=== PATIENT | female | born 1990 | race African-American/Black ===

== ENCOUNTER 2019-06-12 00:26 | Inpatient (IN) | payer MEDICAID ==
[~2019-06-12] VITALS: Ht 172.7 cm; Wt 122.5 kg
[2019-06-12] MEDS ORDERED: LACTATED RINGERS 1,000 ML IV SCH (01:20)
[2019-06-12] MEDS ORDERED: DEXT 5%/LR + PITOCIN 20UNITS/L 1,000 ML IV SCH ×2 (01:20→02:41)
[2019-06-12] MEDS ORDERED: LIDOCAINE HCL 1% 20ML VIAL (Pyxis) INJ INFIL SCH (01:30)
[2019-06-12] MEDS ORDERED: MISOPROSTOL 200MCG TABLET VG SCH (01:30)
[2019-06-12] MEDS ORDERED: ACETAMINOPHEN WITH CODEINE 300/30MG TABLET PO PRN (02:45)
[2019-06-12] MEDS ORDERED: IBUPROFEN 400MG TABLET PO PRN (02:45)
[2019-06-12] MEDS ORDERED: GLYCERIN/WITCH HAZEL LEAF MEDICATED PAD TOP PRN (02:45)
[2019-06-12] MEDS ORDERED: HEMORRHOIDAL SUPP PR PRN (02:45)
[2019-06-12] MEDS ORDERED: LANOLIN OINT 7GM TUBE TOP PRN (02:45)
[2019-06-12] MEDS ORDERED: DIPHENHYDRAMINE 25MG CAPSULE PO PRN (02:45)
[2019-06-12 02:58] LABS: CHLORIDE 107 mEq/L (98-107)
[2019-06-12 03:01] LABS: CLARITY URINE TURBID (CLEAR); COLOR URINE ORANGE (YELLOW); KETONES URINE 4+ (NEGATIVE); LEUKOCYTE ESTERASE URINE TRACE (NEGATIVE); NITRITE URINE NEGATIVE (NEGATIVE); OCCULT BLOOD URINE 3+ (NEGATIVE); PROTEIN URINE 2+ (NEGATIVE)
[2019-06-12 03:03] LABS: D-DIMER 4.25 mg/L FEU (<0.50); PARTIAL THROMBOPLASTIN TIME 39.2 sec (23.4-31.0); PROTHROMBIN TIME 11.1 sec (9.6-11.0)
[2019-06-12 03:12] LABS: HEMATOCRIT. 38.5 % (36.0-48.0); HEMOGLOBIN. 12.3 g/dL (12.0-16.0); MEAN CORPUSCULAR HEMOGLOBIN 26.6 pg (28.0-32.0); MEAN CORPUSCULAR VOLUME 83.1 fL (81.0-99.0); MEAN PLATELET VOLUME 11.6 fl (7.4-10.4); PLATELET 242 x1000/uL (130-400); RED BLOOD CELL COUNT 4.64 mill/uL (4.2-5.4); RED CELL DISTRIBUTION WIDTH 17.3 % (11.6-14.6)
[2019-06-12 03:13] LABS: *AMPHETAMINES SCREEN URINE NEGATIVE (NEGATIVE); *BARBITURATES SCREEN URINE NEGATIVE (NEGATIVE); *BENZODIAZEPINES SCREEN URINE NEGATIVE (NEGATIVE); *COCAINE SCREEN URINE NEGATIVE (NEGATIVE); CANNABINOID URINE SCREEN NEGATIVE (NEGATIVE); PHENCYCLIDINE URINE SCREEN NEGATIVE (NEGATIVE)
[2019-06-12 03:14] LABS: METHADONE URINE SCREEN NEGATIVE (NEGATIVE); OPIATES URINE SCREEN NEGATIVE (NEGATIVE)
[2019-06-12 03:26] LABS: HEPATITIS B SURFACE ANTIGEN NEGATIVE
[2019-06-12] MEDS: IBUPROFEN 800MG TABLET PO PRN ×2 (03:52→16:22)
[2019-06-12] MEDS ORDERED: PREN-182 PO (04:00)
[2019-06-12 05:15] VITALS: BP 123/75
[2019-06-12] MEDS ORDERED: TETANUS, DIPHTHERIA, PERTUSSIS VAC/PF 0.5ML (>7YR OLD) IM ONE (06:00)
[2019-06-12] MEDS ORDERED: INFLUENZA VIRUS VACCINE(AFLURIA) 0.5ML SYR IM ONE (06:00)
[2019-06-12 06:35] LABS: HEMATOCRIT. 30.9 % (36.0-48.0); HEMOGLOBIN. 9.9 g/dL (12.0-16.0); MEAN CORPUSCULAR HEMOGLOBIN 26.6 pg (28.0-32.0); MEAN CORPUSCULAR VOLUME 82.8 fL (81.0-99.0); MEAN PLATELET VOLUME 10.8 fl (7.4-10.4); PLATELET 228 x1000/uL (130-400); RED BLOOD CELL COUNT 3.73 mill/uL (4.2-5.4); RED CELL DISTRIBUTION WIDTH 17.1 % (11.6-14.6)
[2019-06-12 07:30] VITALS: BP 105/58
[2019-06-12] MEDS: BENZOCAINE/LANOLIN/ALOE VERA SPRAY TOP PRN ×2 (08:42→16:22)
[2019-06-12] MEDS: LABETALOL HCL 200MG TABLET PO SCH ×2 (08:43→21:00)
[2019-06-12] MEDS: PRENATAL VIT/FE FUMARATE/FA TABLET PO SCH (08:43)
[2019-06-12 13:31] LABS: PLATELET ESTIMATE NORMAL
[2019-06-12 14:49] VITALS: BP 122/72
[2019-06-12 15:58] LABS: PLATELET ESTIMATE NORMAL
[2019-06-12 20:00] VITALS: BP 107/50
[2019-06-12] MEDS ORDERED: DOCUSATE SODIUM 100MG CAPSULE PO SCH (21:00)
[2019-06-13 00:15] VITALS: BP 116/57
[2019-06-13] MEDS: IBUPROFEN 800MG TABLET PO PRN (04:32)
[2019-06-13] MEDS ORDERED: FERROUS SULFATE 325MG TABLET PO SCH (07:30)
[2019-06-13 07:48] VITALS: BP 125/65
[2019-06-13] MEDS ORDERED: IBUP-2030 PO (08:00)
[2019-06-13] MEDS ORDERED: FERR325T23 PO (08:00)
[2019-06-13] MEDS ORDERED: LABE200T28 PO (08:00)
[2019-06-13 08:05] LABS: HEMATOCRIT. 21.8 % (36.0-48.0); HEMOGLOBIN. 7.3 g/dL (12.0-16.0); MEAN CORPUSCULAR HEMOGLOBIN 27.4 pg (28.0-32.0); MEAN CORPUSCULAR VOLUME 82.4 fL (81.0-99.0); MEAN PLATELET VOLUME 11.1 fl (7.4-10.4); PLATELET 179 x1000/uL (130-400); RED BLOOD CELL COUNT 2.65 mill/uL (4.2-5.4); RED CELL DISTRIBUTION WIDTH 17.3 % (11.6-14.6)
[2019-06-13] MEDS: PRENATAL VIT/FE FUMARATE/FA TABLET PO SCH (09:26)
[2019-06-13] MEDS: LABETALOL HCL 200MG TABLET PO SCH (09:27)
[2019-06-13 14:01] LABS: PLATELET ESTIMATE NORMAL
== END 2019-06-13 12:50 | disposition home or self-care (01) | DRG 560 ==
LOC: 8 EST LDRP 00:26 → OBSVTOIN 00:26 → 8EST 05:15
PROVIDERS: ADMIT Specialist; ATTEND Specialist
PROC: 10E0XZZ Delivery of Products of Conception, External Approach (ICD-10-PCS; principal; 2019-06-12)
PROC: 0KQM0ZZ Repair Perineum Muscle, Open Approach (ICD-10-PCS; 2019-06-12)
PROC: 3E033VJ Introduction of Other Hormone into Peripheral Vein, Percutaneous Approach (ICD-10-PCS; 2019-06-12)
DX: O76 Abnormality in fetal heart rate and rhythm complicating labor and delivery (principal); O99.324 Drug use complicating childbirth; O99.214 Obesity complicating childbirth; E66.9 Obesity, unspecified; O77.0 Labor and delivery complicated by meconium in amniotic fluid; O62.2 Other uterine inertia; O13.4 Gestational [pregnancy-induced] hypertension without significant proteinuria, complicating childbirth; O62.3 Precipitate labor; F12.10 Cannabis abuse, uncomplicated; O99.844 Bariatric surgery status complicating childbirth; D64.9 Anemia, unspecified; O70.1 Second degree perineal laceration during delivery; O90.81 Anemia of the puerperium; Z3A.40 40 weeks gestation of pregnancy; Z37.0 Single live birth
CPT/HCPCS: 36415; 80053; 80305; 81003; 84550; 85025; 85379; 85384; 86592; 86703; 86762; 86850; 86900; 87340; 90686; 90715; G0378; J2590; J3490

== ENCOUNTER 2023-11-07 17:00 | Emergency (ER) | payer BC, MEDICAID ==
[~2023-11-07] VITALS: Ht 172.7 cm; Wt 127.0 kg
[~2023-11-07 17:00] MED LIST: FERR325T23 PO; IBUP-2030 PO; LABE200T9 PO; PREN-182 PO
[2023-11-07 17:05] VITALS: BP 136/72; PULSE 80; RESP 16; TEMP 98; O2SAT 100; O2SAT 99
== END 2023-11-07 18:10 | disposition home or self-care (01) ==
LOC: ER 17:00
DX: R59.0 Localized enlarged lymph nodes (principal); F19.90 Other psychoactive substance use, unspecified, uncomplicated; Z98.890 Other specified postprocedural states
CPT/HCPCS: 99281